=== PATIENT | male | born 1950 | race American Indian/Alaskan Native ===

== ENCOUNTER 2020-10-24 14:08 | Outpatient (CLI) | payer BC ==
--- NOTE | 2020-10-24 15:21 | XRay Report ---
LUMBAR SPINE 3 VIEWS INDICATION / CLINICAL INFORMATION: LOW BACK PAIN. COMPARISON: None available. FINDINGS: VERTEBRAE: No acute fracture. No significant malalignment. DISC SPACES / FACET JOINTS:Disc spaces are maintained. Anterior osteophytosis at the L2-3 level. Face t arthropathy at L5-S1. PARASPINAL SOFT TISSUES:No significant abnormality. ADDITIONAL FINDINGS: None. Signer Name: Wyatt Puri MD Signed: 10/24/2020 3:16 PM Workstation Name: [id number]
== END 2020-10-24 14:09 | disposition home or self-care (01) ==
LOC: XRAY 14:08
PROVIDERS: ATTEND Internal Medicine
DX: M25.78 Osteophyte, vertebrae (principal)
CPT/HCPCS: 72100